=== PATIENT | male | born 1940 | race Caucasian/White ===

== ENCOUNTER 2016-07-01 13:37 | Outpatient (CLI) | payer MEDICARE, OTHER ==
[2016-07-01 14:28] LABS: MEAN CORPUSCULAR HEMOGLOBIN 29.7 pg (28.0-34.0)
[2016-07-01 14:37] LABS: eGFR (African) > 60; eGFR (Non-African) > 60
[2016-07-01 15:18] LABS: EOSINOPHILS % 7 % (0-7); MONOCYTES % 3 % (0-11); SEGMENTED NEUTROPHILS % 68 % (39-79)
== END 2016-07-01 13:40 ==
LOC: LAB 13:37
PROVIDERS: ATTEND Internal Medicine Hematology & Oncology
DX: J44.9 Chronic obstructive pulmonary disease, unspecified (principal); K21.0 Gastro-esophageal reflux disease with esophagitis; R10.84 Generalized abdominal pain; E11.9 Type 2 diabetes mellitus without complications; K59.01 Slow transit constipation
CPT/HCPCS: 36415; 80053; 82607; 83735; 84443; 85025

== ENCOUNTER 2016-09-25 10:44 | Outpatient (CLI) | payer MEDICARE, OTHER ==
[2016-09-25 11:12] LABS: MEAN CORPUSCULAR HEMOGLOBIN 28.6 pg (28.0-34.0); MEAN CORPUSCULAR VOLUME 87.8 fl (80.0-100.0)
[2016-09-25 11:40] LABS: eGFR (African) > 60; eGFR (Non-African) > 60
[2016-09-25 11:49] LABS: SEGMENTED NEUTROPHILS % 68 % (39-79)
[2016-09-25 11:50] LABS: BASOPHILS % 1 % (0-2); EOSINOPHILS % 3 % (0-7); MONOCYTES % 4 % (0-11)
== END 2016-09-25 10:45 ==
LOC: LAB 10:44
PROVIDERS: ATTEND Internal Medicine Hematology & Oncology
DX: D72.810 Lymphocytopenia (principal); E11.9 Type 2 diabetes mellitus without complications; K59.01 Slow transit constipation; R63.4 Abnormal weight loss; I63.50 Cerebral infarction due to unspecified occlusion or stenosis of unspecified cerebral artery
CPT/HCPCS: 36415; 80053; 82607; 83090; 83735; 84443; 85025

== ENCOUNTER 2016-11-01 13:26 | Outpatient (CLI) | payer MEDICARE, OTHER | END 2016-11-01 13:27 | LOC: POD 13:26 | PROVIDERS: ATTEND Podiatrist | DX: B35.1 Tinea unguium (principal); M79.674 Pain in right toe(s); M79.675 Pain in left toe(s) | CPT/HCPCS: 11721; G0463 ==

== ENCOUNTER 2016-12-20 14:15 | Outpatient (CLI) | payer MEDICARE, OTHER | END 2016-12-20 14:16 | LOC: POD 14:15 | PROVIDERS: ATTEND Podiatrist | DX: E11.42 Type 2 diabetes mellitus with diabetic polyneuropathy (principal); M20.41 Other hammer toe(s) (acquired), right foot; M20.42 Other hammer toe(s) (acquired), left foot | CPT/HCPCS: G0463 ==

== ENCOUNTER 2016-12-31 08:25 | Outpatient (CLI) | payer MEDICARE, OTHER ==
[2016-12-31 09:34] LABS: MEAN CORPUSCULAR HEMOGLOBIN 29.5 pg (28.0-34.0); MEAN CORPUSCULAR VOLUME 87.5 fl (80.0-100.0)
[2016-12-31 09:36] LABS: eGFR (African) > 60; eGFR (Non-African) > 60
[2016-12-31 10:32] LABS: BASOPHILS % 1 % (0-2); EOSINOPHILS % 6 % (0-7); MONOCYTES % 5 % (0-11); SEGMENTED NEUTROPHILS % 53 % (39-79)
[2016-12-31 22:00] LABS: SERUM IRON 86 ug/dL (59-158)
== END 2016-12-31 08:26 ==
LOC: LAB 08:25
PROVIDERS: ATTEND Internal Medicine Hematology & Oncology
DX: R10.84 Generalized abdominal pain (principal); K59.01 Slow transit constipation; D72.810 Lymphocytopenia; K21.0 Gastro-esophageal reflux disease with esophagitis; E11.9 Type 2 diabetes mellitus without complications
CPT/HCPCS: 36415; 80053; 83540; 83550; 83735; 84153; 84403; 84443; 85025

== ENCOUNTER 2017-02-11 13:07 | Outpatient (CLI) | payer MEDICARE, OTHER | END 2017-02-11 13:10 | LOC: POD 13:07 | PROVIDERS: ATTEND Podiatrist | DX: B35.1 Tinea unguium (principal); M79.674 Pain in right toe(s); M79.675 Pain in left toe(s) | CPT/HCPCS: 11721; G0463 ==

== ENCOUNTER 2017-02-25 14:16 | Outpatient (CLI) | payer MEDICARE, OTHER ==
[2017-02-25 14:51] LABS: MEAN CORPUSCULAR HEMOGLOBIN 29.4 pg (28.0-34.0); MEAN CORPUSCULAR VOLUME 84.8 fl (80.0-100.0)
[2017-02-25 15:15] LABS: eGFR (African) > 60; eGFR (Non-African) > 60
[2017-02-25 16:04] LABS: EOSINOPHILS % 5 % (0-7); MONOCYTES % 5 % (0-11); SEGMENTED NEUTROPHILS % 71 % (39-79)
== END 2017-02-25 14:17 ==
LOC: LAB 14:16
PROVIDERS: ATTEND Internal Medicine Hematology & Oncology
DX: R59.0 Localized enlarged lymph nodes (principal); J44.9 Chronic obstructive pulmonary disease, unspecified; E83.42 Hypomagnesemia; K59.01 Slow transit constipation; E11.65 Type 2 diabetes mellitus with hyperglycemia
CPT/HCPCS: 36415; 80053; 84439; 84443; 84481; 85025

== ENCOUNTER 2017-06-20 14:59 | Outpatient (CLI) | payer MEDICARE, OTHER | END 2017-06-20 15:00 | LOC: POD 14:59 | PROVIDERS: ATTEND Podiatrist | DX: B35.1 Tinea unguium (principal); M79.674 Pain in right toe(s); M79.675 Pain in left toe(s) | CPT/HCPCS: 11721; G0463 ==

== ENCOUNTER 2017-06-23 09:03 | Outpatient (CLI) | payer OTHER ==
[2017-06-23 10:03] LABS: MEAN CORPUSCULAR HEMOGLOBIN 30.3 pg (28.0-34.0); MEAN CORPUSCULAR VOLUME 91.4 fl (80.0-100.0)
[2017-06-23 10:16] LABS: EOSINOPHILS % 4 % (0-7); MONOCYTES % 1 % (0-11); SEGMENTED NEUTROPHILS % 66 % (39-79)
[2017-06-23 10:55] LABS: eGFR (African) > 60; eGFR (Non-African) > 60
== END 2017-06-23 09:04 ==
LOC: LAB 09:03
PROVIDERS: ATTEND Internal Medicine Hematology & Oncology
DX: J44.9 Chronic obstructive pulmonary disease, unspecified (principal); E11.65 Type 2 diabetes mellitus with hyperglycemia; D72.810 Lymphocytopenia; K59.01 Slow transit constipation; E83.42 Hypomagnesemia
CPT/HCPCS: 36415; 80053; 80061; 83036; 84443; 85025

== ENCOUNTER 2017-09-19 15:04 | Outpatient (CLI) | payer OTHER | END 2017-09-19 15:05 | LOC: POD 15:04 | PROVIDERS: ATTEND Podiatrist | DX: B35.1 Tinea unguium (principal); M79.674 Pain in right toe(s); M79.675 Pain in left toe(s) | CPT/HCPCS: 11721; G0463 ==

== ENCOUNTER 2017-12-19 13:33 | Outpatient (CLI) | payer OTHER | END 2017-12-19 13:35 | LOC: POD 13:33 | PROVIDERS: ATTEND Podiatrist | DX: B35.1 Tinea unguium (principal); M79.674 Pain in right toe(s); M79.675 Pain in left toe(s) | CPT/HCPCS: 11721; G0463 ==

== ENCOUNTER 2018-02-04 07:47 | Outpatient (CLI) | payer OTHER ==
[2018-02-04 15:56] LABS: TOTAL PROTEIN 6.9 g/dL (6.0-8.5)
[2018-02-04 16:01] LABS: MCH. 30.3 pg (28.0-34.0); MCV 90.1 fL (80.0-100.0); PLATELET COUNT 213 thou/uL (130-400)
[2018-02-05 06:43] LABS: MONOCYTE % 5
[2018-02-05 06:44] LABS: EOS % 10
== END 2018-02-04 07:50 ==
LOC: LAB 07:47
PROVIDERS: ATTEND Internal Medicine Hematology & Oncology
DX: M25.50 Pain in unspecified joint (principal); E11.65 Type 2 diabetes mellitus with hyperglycemia; E83.42 Hypomagnesemia; K59.01 Slow transit constipation; K21.0 Gastro-esophageal reflux disease with esophagitis; Z12.5 Encounter for screening for malignant neoplasm of prostate
CPT/HCPCS: 36415; 80053; 80061; 83036; 83735; 84153; 85025

== ENCOUNTER 2018-05-25 08:29 | Outpatient (CLI) | payer OTHER ==
[2018-05-25 09:49] LABS: MEAN CORPUSCULAR HEMOGLOBIN 28.6 pg (28.0-34.0)
[2018-05-25 09:51] LABS: BASOPHILS % 0.3 (0.0-1.5); EOSINOPHILS % 4.8 % (0.0-6.8); MONOCYTES % 6.9 % (0.0-11.0); NEUTROPHILS # 5.1 # k/uL (1.4-7.7)
[2018-05-25 10:21] LABS: eGFR (Non-African) > 60
== END 2018-05-25 08:30 ==
LOC: LAB 08:29
PROVIDERS: ATTEND Internal Medicine Hematology & Oncology
DX: I63.50 Cerebral infarction due to unspecified occlusion or stenosis of unspecified cerebral artery (principal); E11.65 Type 2 diabetes mellitus with hyperglycemia; R63.4 Abnormal weight loss; K21.0 Gastro-esophageal reflux disease with esophagitis; J44.9 Chronic obstructive pulmonary disease, unspecified
CPT/HCPCS: 36415; 80053; 80061; 82607; 83036; 84482; 85025